=== PATIENT | female | born 1935 | race Caucasian/White ===

== ENCOUNTER 2023-01-14 14:42 | Inpatient (IN) | payer MEDICARE, BC ==
[~2023-01-14] VITALS: Ht 160 cm; Wt 54.9 kg
[2023-01-14 15:24] LABS: BASOPHILS # (AUTO) 0.1 K/UL (0.0-0.2); BASOPHILS % (AUTO) 0.8 % (0.0-2.0); EOSINOPHILS # (AUTO) 0.2 K/uL (0.0-0.7); EOSINOPHILS % (AUTO) 1.4 % (0.0-7.0); HEMATOCRIT 32.7 % (31.2-41.9); HEMOGLOBIN 10.4 g/dL (10.9-14.3); LYMPHOCYTES # (AUTO) 1.5 K/uL (0.8-4.8); LYMPHOCYTES % (AUTO) 13.9 % (20.5-51.5); MEAN CORPUSCULAR HEMOGLOBIN 28.2 uug (24.7-32.8); MEAN CORPUSCULAR HGB CONC 32 g/dL (32.3-35.6); MEAN CORPUSCULAR VOLUME 88.5 fL (75.5-95.3); MONOCYTES # (AUTO) 0.9 K/uL (0.1-1.30); MONOCYTES % (AUTO) 7.8 % (0.0-11.0); NEUTROPHILS # (AUTO) 8.5 K/uL (1.8-8.9); NEUTROPHILS % (AUTO) 76.1 % (38.5-71.5); PLATELET COUNT (AUTO) 486 K/uL (179-408); RED CELL DISTRIBUTION WIDTH 16.1 % (12.3-17.7); WHITE BLOOD COUNT (AUTO) 11.2 K/uL (3.8-11.8)
[2023-01-14 15:28] LABS: DIFFERENTIAL COMMENT 1
[2023-01-14 15:35] LABS: CARBON DIOXIDE 28 mmol/L (21-32); CHLORIDE 104 mmol/L (98-107); CREATININE 1.5 mg/dL (0.6-1.3); GLUCOSE 126 mg/dL (74-106); POTASSIUM 4.5 mmol/L (3.5-5.1); SODIUM SERUM 141 mmol/L (136-145); UREA NITROGEN, BLOOD 29 mg/dL (7-18)
[2023-01-14 15:39] LABS: ETHANOL < 3 MG/DL (0-10)
[2023-01-14 15:49] LABS: ACETAMINOPHEN < 2.0 ug/mL (10-30); ALANINE AMINOTRANSFERASE 11 U/L (14-59); ALBUMIN 2.8 g/dL (3.4-5.0); ALKALINE PHOSPHATASE 196 U/L (50-136); ASPARTATE AMINOTRANSFERASE 26 U/L (15-37); BILIRUBIN,DIRECT 0.2 mg/dL (0.0-0.2); BILIRUBIN,TOTAL 0.4 mg/dL (0.2-1.0)
[2023-01-14 15:55] LABS: *BILIRUBIN,URIN NEGATIVE (NEGATIVE); *BLOOD, URINE NEGATIVE (NEGATIVE); *COLOR,URINE YELLOW (YELLOW); *KETONES,URINE TRACE (NEGATIVE); *PROTEIN,URINE 1+ (NEGATIVE); *UROBILINOGEN,URINE 0.2 E.U./dl (NORMAL); LEUKOCYTE ESTERASE ,URINE 2+ (NEGATIVE); NITRITE, URINE POSITIVE (NEGATIVE); PH,URINE 5.5 (5.0-8.0); UGLUCOSE NEGATIVE (NEGATIVE)
[2023-01-14 15:58] LABS: *CLARITY,URINE SLIGHTLY CLOUDY (CLEAR)
[2023-01-14] MEDS ORDERED: VANCOMYCIN IV 200 ML ONE (16:00)
[2023-01-14] MEDS ORDERED: CEFTRIAXONE /D5W 50ML IVPB **ER PYXIS IV ONE (16:00)
[2023-01-14 16:09] LABS: *AMPHETAMINE, URINE NEGATIVE (NEGATIVE); *BARBITURATE, URINE NEGATIVE (NEGATIVE); *BENZODIAZEPINE, URINE NEGATIVE (NEGATIVE); *CANNABINOID, URINE NEGATIVE (NEGATIVE); *COCCAINE, URINE NEGATIVE (NEGATIVE); *OPIATE, URINE POSITIVE (NEGATIVE); *PHENCYCLIDINE SCREEN,URINE NEGATIVE (NEGATIVE); FENTANYL, URINE NEGATIVE (NEGATIVE)
[2023-01-14 16:21] LABS: BACTERIA,URINE MODERATE /HPF (NONE SEEN); SQUAMOUS EPITHELIAL CELL,UR MODERATE /HPF (NONE SEEN); WBC,URINE TNTC /HPF (0-3)
[2023-01-14] MEDS ORDERED: CEphaleXIN 500 MG CAPSULE PO ONE (16:45)
[2023-01-14] MEDS ORDERED: OLANZAPINE 10 MG VIAL IM ONE ×2 (17:00→18:27)
[2023-01-14] MEDS ORDERED: ACET-3117 PO (21:14)
[2023-01-14] MEDS ORDERED: LISI20TA30 PO (21:14)
[2023-01-14] MEDS ORDERED: ALBU2.5V13 IH (21:14)
[2023-01-14] MEDS ORDERED: DONE5TAB34 PO (21:14)
[2023-01-14] MEDS ORDERED: BLOOD SUGAR DIAGNOSTIC 1 EACH STRIP VI ONE (22:00)
[2023-01-14] MEDS ORDERED: MAG HYDROX/AL HYDROX/SIMETH 30 ML LIQUID UDC PO PRN (22:00)
[2023-01-14] MEDS ORDERED: MAGNESIUM HYDROXIDE 30 ML LIQUID UDC PO PRN (22:00)
[2023-01-14] MEDS: TEMAZEPAM 7.5 MG CAPSULE PO PRN (22:14)
[2023-01-14] MEDS ORDERED: ASPI-612 PO (23:39)
[2023-01-14] MEDS ORDERED: LOVA40TA2 PO (23:39)
[2023-01-14] MEDS ORDERED: MIRT-121 PO (23:39)
[2023-01-14] MEDS ORDERED: FAMO10TA41 PO (23:39)
[2023-01-14] MEDS ORDERED: HYDR-3974 PO (23:39)
[2023-01-14] MEDS ORDERED: OLAN2.5T3 PO ×2 (23:39)
[2023-01-14] MEDS ORDERED: DOCU-141 PO (23:39)
[2023-01-14] MEDS ORDERED: MELA5TAB20 PO (23:39)
[2023-01-14] MEDS ORDERED: MONT10TA22 PO (23:39)
[2023-01-14] MEDS: CLONAZEPAM 0.5 MG TABLET PO PRN (23:42)
[2023-01-15] MEDS ORDERED: REMEDY ESSENTIAL ZINC PASTE 113 GM TOP PRN (06:45)
[2023-01-15 08:00] VITALS: BP 149/61; TEMP 97.9; O2SAT 99
[2023-01-15] MEDS: CLONAZEPAM 0.5 MG TABLET PO PRN ×3 (08:53→18:39)
[2023-01-15] MEDS: ACETAMINOPHEN 325 MG TABLET PO PRN (08:54)
[2023-01-15] MEDS: REMEDY ESSENTIAL ZINC PASTE 113 GM TOP SCH ×2 (09:00→20:50)
[2023-01-15] MEDS: OLANZAPINE 2.5 MG TABLET PO SCH ×2 (11:51→17:04)
[2023-01-15 16:14] VITALS: BP 107/64; TEMP 97.6; O2SAT 98
[2023-01-15] MEDS ORDERED: ALBUTEROL SULFATE 2.5 MG/ 0.5 ML NEBU IH PRN (19:15)
[2023-01-15 20:12] VITALS: BP 142/69; TEMP 98.2; O2SAT 98
[2023-01-15] MEDS: ATORVASTATIN 10 MG TABLET PO SCH (20:38)
[2023-01-15] MEDS: DOCUSATE SODIUM 100 MG CAPSULE PO SCH (20:38)
[2023-01-15] MEDS: MELATONIN 3 MG TABLET PO SCH (20:39)
[2023-01-15] MEDS: TEMAZEPAM 7.5 MG CAPSULE PO PRN (23:57)
[2023-01-16] MEDS: CLONAZEPAM 0.5 MG TABLET PO PRN ×3 (02:13→19:46)
[2023-01-16 08:05] VITALS: BP 110/49; TEMP 98.3; O2SAT 93
[2023-01-16] MEDS: OLANZAPINE 2.5 MG TABLET PO SCH ×2 (08:57→16:57)
[2023-01-16] MEDS: FAMOTIDINE 20 MG TABLET PO SCH (08:58)
[2023-01-16] MEDS: REMEDY ESSENTIAL ZINC PASTE 113 GM TOP SCH ×2 (08:58→21:10)
[2023-01-16] MEDS: ASPIRIN 325 MG TABLET PO SCH (08:58)
[2023-01-16] MEDS: ACETAMINOPHEN 325 MG TABLET PO PRN (14:19)
[2023-01-16 15:35] VITALS: BP 98/48; TEMP 98; O2SAT 96
[2023-01-16] MEDS: MONTELUKAST SODIUM 10 MG TABLET PO SCH (16:57)
[2023-01-16 20:13] VITALS: BP 102/73; TEMP 98.2; O2SAT 96
[2023-01-16] MEDS: MELATONIN 3 MG TABLET PO SCH (20:14)
[2023-01-16] MEDS: DOCUSATE SODIUM 100 MG CAPSULE PO SCH (21:00)
[2023-01-16] MEDS: ATORVASTATIN 10 MG TABLET PO SCH (21:00)
[2023-01-16] MEDS: TEMAZEPAM 7.5 MG CAPSULE PO PRN (21:13)
[2023-01-17] MEDS: HYDROCODONE/APAP 5-325MG TABLET PO PRN ×2 (00:16→17:05)
[2023-01-17] MEDS: CLONAZEPAM 0.5 MG TABLET PO PRN ×4 (00:41→23:43)
[2023-01-17 08:24] VITALS: BP 130/64; TEMP 98; O2SAT 96
[2023-01-17] MEDS: OLANZAPINE 2.5 MG TABLET PO SCH ×2 (08:34→17:05)
[2023-01-17] MEDS: FAMOTIDINE 20 MG TABLET PO SCH (08:34)
[2023-01-17] MEDS: ASPIRIN 325 MG TABLET PO SCH (08:34)
[2023-01-17] MEDS: REMEDY ESSENTIAL ZINC PASTE 113 GM TOP SCH ×2 (08:35→20:05)
[2023-01-17] MEDS: CEFTRIAXONE 1 G VIAL IM SCH (08:52)
[2023-01-17 16:13] VITALS: BP 97/71; TEMP 98; O2SAT 96
[2023-01-17] MEDS: MONTELUKAST SODIUM 10 MG TABLET PO SCH (17:07)
[2023-01-17] MEDS: DOCUSATE SODIUM 100 MG CAPSULE PO SCH (19:55)
[2023-01-17] MEDS: ATORVASTATIN 10 MG TABLET PO SCH (20:03)
[2023-01-17] MEDS: ACETAMINOPHEN 325 MG TABLET PO PRN (20:03)
[2023-01-17] MEDS: MELATONIN 3 MG TABLET PO SCH (20:04)
[2023-01-17 20:48] VITALS: BP 129/90; TEMP 98.2; O2SAT 96
[2023-01-18] MEDS: CLONAZEPAM 0.5 MG TABLET PO PRN ×2 (06:36→20:03)
[2023-01-18 07:59] LABS: BASOPHILS # (AUTO) 0.1 K/UL (0.0-0.2); BASOPHILS % (AUTO) 1.1 % (0.0-2.0); EOSINOPHILS # (AUTO) 0.3 K/uL (0.0-0.7); EOSINOPHILS % (AUTO) 2.6 % (0.0-7.0); HEMATOCRIT 33.8 % (31.2-41.9); HEMOGLOBIN 10.8 g/dL (10.9-14.3); LYMPHOCYTES # (AUTO) 1.3 K/uL (0.8-4.8); LYMPHOCYTES % (AUTO) 12.7 % (20.5-51.5); MEAN CORPUSCULAR HEMOGLOBIN 28.4 uug (24.7-32.8); MEAN CORPUSCULAR HGB CONC 32 g/dL (32.3-35.6); MEAN CORPUSCULAR VOLUME 89.1 fL (75.5-95.3); MONOCYTES # (AUTO) 0.7 K/uL (0.1-1.30); MONOCYTES % (AUTO) 6.8 % (0.0-11.0); NEUTROPHILS # (AUTO) 7.6 K/uL (1.8-8.9); NEUTROPHILS % (AUTO) 76.8 % (38.5-71.5); PLATELET COUNT (AUTO) 464 K/uL (179-408); RED BLOOD CELL COUNT(AUTO) 3.79 MIL/uL (3.63-4.92); RED CELL DISTRIBUTION WIDTH 15.9 % (12.3-17.7); WHITE BLOOD COUNT (AUTO) 9.9 K/uL (3.8-11.8)
[2023-01-18 08:13] LABS: DIFFERENTIAL COMMENT 1
[2023-01-18 08:14] VITALS: BP 129/47; TEMP 98.1; O2SAT 98
[2023-01-18 08:30] LABS: ALANINE AMINOTRANSFERASE 23 U/L (14-59); ALBUMIN 2.8 g/dL (3.4-5.0); ALKALINE PHOSPHATASE 198 U/L (50-136); ASPARTATE AMINOTRANSFERASE 23 U/L (15-37); BILIRUBIN,TOTAL 0.2 mg/dL (0.2-1.0); CARBON DIOXIDE 29 mmol/L (21-32); CHLORIDE 106 mmol/L (98-107); CREATININE 1.8 mg/dL (0.6-1.3); GLUCOSE 135 mg/dL (74-106); MAGNESIUM 2.1 mg/dL (1.8-2.4); PHOSPHOROUS 4.5 mg/dL (2.5-4.9); POTASSIUM 4.6 mmol/L (3.5-5.1); SODIUM SERUM 143 mmol/L (136-145); TOTAL PROTEIN, SERUM 7.3 g/dL (6.4-8.2); UREA NITROGEN, BLOOD 40 mg/dL (7-18)
[2023-01-18] MEDS: OLANZAPINE 2.5 MG TABLET PO SCH ×2 (08:43→17:21)
[2023-01-18] MEDS: FAMOTIDINE 20 MG TABLET PO SCH (08:43)
[2023-01-18] MEDS: ASPIRIN 325 MG TABLET PO SCH (08:43)
[2023-01-18] MEDS: CEFTRIAXONE 1 G VIAL IM SCH (08:45)
[2023-01-18] MEDS: REMEDY ESSENTIAL ZINC PASTE 113 GM TOP SCH ×2 (08:46→20:21)
[2023-01-18 08:52] LABS: CREATINE KINASE, TOTAL 131 U/L (26-192)
[2023-01-18 16:18] VITALS: BP 107/64; TEMP 98; O2SAT 98
[2023-01-18] MEDS: MONTELUKAST SODIUM 10 MG TABLET PO SCH (18:00)
[2023-01-18 19:54] VITALS: BP 146/55; TEMP 98.1; O2SAT 96
[2023-01-18] MEDS: ATORVASTATIN 10 MG TABLET PO SCH (20:03)
[2023-01-18] MEDS: DOCUSATE SODIUM 100 MG CAPSULE PO SCH (20:03)
[2023-01-18] MEDS: MELATONIN 3 MG TABLET PO SCH (21:00)
[2023-01-18] MEDS: TEMAZEPAM 7.5 MG CAPSULE PO PRN (23:13)
[2023-01-19] MEDS: CLONAZEPAM 0.5 MG TABLET PO PRN ×2 (01:05→21:53)
[2023-01-19 07:42] VITALS: BP 146/63; TEMP 98; O2SAT 97
[2023-01-19 08:04] LABS: BASOPHILS % (AUTO) 0.4 % (0.0-2.0); EOSINOPHILS # (AUTO) 0.3 K/uL (0.0-0.7); EOSINOPHILS % (AUTO) 2.6 % (0.0-7.0); HEMATOCRIT 32.5 % (31.2-41.9); HEMOGLOBIN 10.5 g/dL (10.9-14.3); LYMPHOCYTES # (AUTO) 1.7 K/uL (0.8-4.8); LYMPHOCYTES % (AUTO) 17.3 % (20.5-51.5); MEAN CORPUSCULAR HEMOGLOBIN 28.5 uug (24.7-32.8); MEAN CORPUSCULAR HGB CONC 32 g/dL (32.3-35.6); MEAN CORPUSCULAR VOLUME 88.4 fL (75.5-95.3); MONOCYTES # (AUTO) 0.7 K/uL (0.1-1.30); MONOCYTES % (AUTO) 7.5 % (0.0-11.0); NEUTROPHILS % (AUTO) 72.2 % (38.5-71.5); PLATELET COUNT (AUTO) 463 K/uL (179-408); RED BLOOD CELL COUNT(AUTO) 3.68 MIL/uL (3.63-4.92); WHITE BLOOD COUNT (AUTO) 9.7 K/uL (3.8-11.8)
[2023-01-19 08:17] LABS: DIFFERENTIAL COMMENT 1
[2023-01-19 08:24] LABS: ALANINE AMINOTRANSFERASE 11 U/L (14-59); ALBUMIN 2.8 g/dL (3.4-5.0); ALKALINE PHOSPHATASE 193 U/L (50-136); ASPARTATE AMINOTRANSFERASE 22 U/L (15-37); BILIRUBIN,TOTAL 0.4 mg/dL (0.2-1.0); CALCIUM 9.2 mg/dL (8.5-10.1); CARBON DIOXIDE 27 mmol/L (21-32); CHLORIDE 106 mmol/L (98-107); CREATININE 1.5 mg/dL (0.6-1.3); GLUCOSE 104 mg/dL (74-106); MAGNESIUM 2.1 mg/dL (1.8-2.4); PHOSPHOROUS 4.2 mg/dL (2.5-4.9); POTASSIUM 4.9 mmol/L (3.5-5.1); SODIUM SERUM 143 mmol/L (136-145); TOTAL PROTEIN, SERUM 7.2 g/dL (6.4-8.2); UREA NITROGEN, BLOOD 40 mg/dL (7-18)
[2023-01-19] MEDS: ASPIRIN 325 MG TABLET PO SCH (08:33)
[2023-01-19] MEDS: FAMOTIDINE 20 MG TABLET PO SCH (08:33)
[2023-01-19] MEDS: CEFTRIAXONE 1 G VIAL IM SCH (08:34)
[2023-01-19] MEDS: OLANZAPINE 2.5 MG TABLET PO SCH ×2 (08:35→17:09)
[2023-01-19] MEDS: REMEDY ESSENTIAL ZINC PASTE 113 GM TOP SCH ×2 (08:35→20:48)
[2023-01-19] MEDS: GLUCERNA SHAKE 237 ML CAN PO SCH ×2 (12:03→17:00)
[2023-01-19 16:16] VITALS: BP 131/51; TEMP 98; O2SAT 95
[2023-01-19] MEDS: MONTELUKAST SODIUM 10 MG TABLET PO SCH (17:09)
[2023-01-19 19:52] VITALS: BP 119/68; TEMP 97.8; O2SAT 93
[2023-01-19 20:06] VITALS: O2SAT 92
[2023-01-19] MEDS: DOCUSATE SODIUM 100 MG CAPSULE PO SCH (20:47)
[2023-01-19] MEDS: ATORVASTATIN 10 MG TABLET PO SCH (20:48)
[2023-01-19] MEDS: MELATONIN 3 MG TABLET PO SCH (20:48)
[2023-01-19] MEDS: TEMAZEPAM 7.5 MG CAPSULE PO PRN (23:26)
[2023-01-20 01:06] LABS: PTH, INTACT 51 pg/mL (15-65)
[2023-01-20 06:06] LABS: A/G RATIO 0.8 (0.7-1.7); ALBUMIN 2.8 g/dL (2.9-4.4); ALPHA-1-GLOBULIN 0.4 g/dL (0.0-0.4); GAMMA GLOBULIN 1.3 g/dL (0.4-1.8); GLOBULIN, TOTAL 3.6 g/dL (2.2-3.9); M-SPIKE Not Observed g/dL (Not Observed)
[2023-01-20] MEDS: CEphaleXIN 250 MG CAPSULE PO SCH ×3 (06:38→22:39)
[2023-01-20] MEDS: ASPIRIN 325 MG TABLET PO SCH (08:55)
[2023-01-20] MEDS: FAMOTIDINE 20 MG TABLET PO SCH (08:55)
[2023-01-20] MEDS: OLANZAPINE 2.5 MG TABLET PO SCH ×2 (08:55→17:11)
[2023-01-20] MEDS: REMEDY ESSENTIAL ZINC PASTE 113 GM TOP SCH ×2 (08:56→20:44)
[2023-01-20] MEDS: GLUCERNA SHAKE 237 ML CAN PO SCH ×3 (08:56→17:11)
[2023-01-20] MEDS: CLOTRIMAZOLE/BETAMET DIPROP CREAM 15 GM TUBE TOP SCH ×2 (10:12→20:44)
[2023-01-20 15:20] VITALS: BP 112/50; TEMP 98.2; O2SAT 96
[2023-01-20] MEDS: MONTELUKAST SODIUM 10 MG TABLET PO SCH (17:12)
[2023-01-20 20:03] VITALS: BP 116/54; TEMP 98; O2SAT 96
[2023-01-20] MEDS: DOCUSATE SODIUM 100 MG CAPSULE PO SCH (20:41)
[2023-01-20] MEDS: ATORVASTATIN 10 MG TABLET PO SCH (20:42)
[2023-01-20] MEDS: MELATONIN 3 MG TABLET PO SCH (20:43)
[2023-01-21] MEDS: TEMAZEPAM 7.5 MG CAPSULE PO PRN (00:09)
[2023-01-21] MEDS: CEphaleXIN 250 MG CAPSULE PO SCH ×3 (05:09→22:08)
[2023-01-21 07:39] VITALS: BP 121/41; TEMP 98.4; O2SAT 96
[2023-01-21] MEDS: ASPIRIN 325 MG TABLET PO SCH (08:24)
[2023-01-21] MEDS: FAMOTIDINE 20 MG TABLET PO SCH (08:24)
[2023-01-21] MEDS: OLANZAPINE 2.5 MG TABLET PO SCH ×2 (08:24→16:20)
[2023-01-21] MEDS: GLUCERNA SHAKE 237 ML CAN PO SCH ×3 (08:25→17:09)
[2023-01-21] MEDS: CLOTRIMAZOLE/BETAMET DIPROP CREAM 15 GM TUBE TOP SCH ×2 (08:26→21:00)
[2023-01-21] MEDS: REMEDY ESSENTIAL ZINC PASTE 113 GM TOP SCH ×2 (08:26→21:00)
[2023-01-21 08:50] LABS: BASOPHILS # (AUTO) 0.2 K/UL (0.0-0.2); BASOPHILS % (AUTO) 1.5 % (0.0-2.0); EOSINOPHILS # (AUTO) 0.3 K/uL (0.0-0.7); EOSINOPHILS % (AUTO) 2.9 % (0.0-7.0); HEMATOCRIT 35.5 % (31.2-41.9); HEMOGLOBIN 11.3 g/dL (10.9-14.3); LYMPHOCYTES # (AUTO) 1.7 K/uL (0.8-4.8); LYMPHOCYTES % (AUTO) 16.6 % (20.5-51.5); MEAN CORPUSCULAR HEMOGLOBIN 28.3 uug (24.7-32.8); MEAN CORPUSCULAR HGB CONC 32 g/dL (32.3-35.6); MEAN CORPUSCULAR VOLUME 88.7 fL (75.5-95.3); MONOCYTES # (AUTO) 0.8 K/uL (0.1-1.30); MONOCYTES % (AUTO) 7.3 % (0.0-11.0); NEUTROPHILS # (AUTO) 7.4 K/uL (1.8-8.9); NEUTROPHILS % (AUTO) 71.7 % (38.5-71.5); PLATELET COUNT (AUTO) 455 K/uL (179-408); RED CELL DISTRIBUTION WIDTH 16.1 % (12.3-17.7); WHITE BLOOD COUNT (AUTO) 10.3 K/uL (3.8-11.8)
[2023-01-21 09:01] LABS: ALANINE AMINOTRANSFERASE 19 U/L (14-59); ALKALINE PHOSPHATASE 200 U/L (50-136); ASPARTATE AMINOTRANSFERASE 23 U/L (15-37); BILIRUBIN,TOTAL 0.4 mg/dL (0.2-1.0); CALCIUM 9.6 mg/dL (8.5-10.1); CARBON DIOXIDE 28 mmol/L (21-32); CHLORIDE 108 mmol/L (98-107); CREATININE 1.6 mg/dL (0.6-1.3); GLUCOSE 146 mg/dL (74-106); MAGNESIUM 2.2 mg/dL (1.8-2.4); PHOSPHOROUS 3.8 mg/dL (2.5-4.9); POTASSIUM 4.5 mmol/L (3.5-5.1); SODIUM SERUM 145 mmol/L (136-145); TOTAL PROTEIN, SERUM 7.7 g/dL (6.4-8.2); UREA NITROGEN, BLOOD 41 mg/dL (7-18)
[2023-01-21 09:06] LABS: DIFFERENTIAL COMMENT 1
[2023-01-21 15:05] VITALS: BP_SYST 116; BP_SYST 122; BP_DIAS 59; BP_DIAS 74; TEMP 97.5; TEMP 98.2; O2SAT 95; O2SAT 98
[2023-01-21] MEDS: MONTELUKAST SODIUM 10 MG TABLET PO SCH (17:08)
[2023-01-21 19:51] VITALS: BP 126/76; TEMP 98.1; O2SAT 96
[2023-01-21] MEDS: MELATONIN 3 MG TABLET PO SCH (21:00)
[2023-01-21] MEDS: ATORVASTATIN 10 MG TABLET PO SCH (22:08)
[2023-01-21] MEDS: DOCUSATE SODIUM 100 MG CAPSULE PO SCH (22:11)
[2023-01-21] MEDS: HYDROCODONE/APAP 5-325MG TABLET PO PRN (22:12)
[2023-01-22] MEDS: TEMAZEPAM 7.5 MG CAPSULE PO PRN (01:30)
[2023-01-22] MEDS: CLONAZEPAM 0.5 MG TABLET PO PRN ×2 (05:30→20:15)
[2023-01-22 08:01] VITALS: BP 128/83; TEMP 98; O2SAT 91
[2023-01-22] MEDS: FAMOTIDINE 20 MG TABLET PO SCH (09:07)
[2023-01-22] MEDS: OLANZAPINE 2.5 MG TABLET PO SCH ×2 (09:07→17:00)
[2023-01-22] MEDS: ASPIRIN 325 MG TABLET PO SCH (09:07)
[2023-01-22] MEDS: ACETAMINOPHEN 325 MG TABLET PO PRN (09:08)
[2023-01-22] MEDS: GLUCERNA SHAKE 237 ML CAN PO SCH ×3 (09:10→17:00)
[2023-01-22] MEDS: CLOTRIMAZOLE/BETAMET DIPROP CREAM 15 GM TUBE TOP SCH ×2 (09:11→20:57)
[2023-01-22] MEDS: REMEDY ESSENTIAL ZINC PASTE 113 GM TOP SCH ×2 (09:12→20:56)
[2023-01-22 15:10] VITALS: BP 131/78; TEMP 98; O2SAT 94
[2023-01-22] MEDS: MONTELUKAST SODIUM 10 MG TABLET PO SCH (17:30)
[2023-01-22 20:05] VITALS: BP 124/74; TEMP 98; O2SAT 95
[2023-01-22] MEDS: MELATONIN 3 MG TABLET PO SCH (20:17)
[2023-01-22] MEDS: ATORVASTATIN 10 MG TABLET PO SCH (20:28)
[2023-01-22] MEDS: DOCUSATE SODIUM 100 MG CAPSULE PO SCH (20:28)
[2023-01-22] MEDS: HYDROCODONE/APAP 5-325MG TABLET PO PRN (21:10)
[2023-01-23] MEDS: TEMAZEPAM 7.5 MG CAPSULE PO PRN (02:49)
[2023-01-23 08:02] VITALS: BP 123/78; TEMP 98; O2SAT 96
[2023-01-23] MEDS: FAMOTIDINE 20 MG TABLET PO SCH (08:54)
[2023-01-23] MEDS: OLANZAPINE 2.5 MG TABLET PO SCH ×2 (08:54→16:35)
[2023-01-23] MEDS: ASPIRIN 325 MG TABLET PO SCH (08:54)
[2023-01-23] MEDS: GLUCERNA SHAKE 237 ML CAN PO SCH ×3 (08:55→16:36)
[2023-01-23] MEDS: REMEDY ESSENTIAL ZINC PASTE 113 GM TOP SCH (08:56)
[2023-01-23] MEDS: CLOTRIMAZOLE/BETAMET DIPROP CREAM 15 GM TUBE TOP SCH (12:46)
[2023-01-23 15:23] VITALS: BP 111/48; TEMP 98; O2SAT 96
[2023-01-23] MEDS: MONTELUKAST SODIUM 10 MG TABLET PO SCH (17:19)
[2023-01-25] MEDS ORDERED: FAMOTIDINE 20 MG TABLET PO SCH (09:00)
== END 2023-01-23 17:42 | DRG 885 ==
LOC: ER 14:42 → GPS 20:56
PROVIDERS: ADMIT Psychiatry & Neurology Psychiatry; ATTEND Internal Medicine
DX: F29 Unspecified psychosis not due to a substance or known physiological condition (principal); E43 Unspecified severe protein-calorie malnutrition; J96.11 Chronic respiratory failure with hypoxia; N17.0 Acute kidney failure with tubular necrosis; N18.9 Chronic kidney disease, unspecified; F03.911 Unspecified dementia, unspecified severity, with agitation; N39.0 Urinary tract infection, site not specified; G93.40 Encephalopathy, unspecified; E88.09 Other disorders of plasma-protein metabolism, not elsewhere classified; Z20.822 Contact with and (suspected) exposure to COVID-19; E78.5 Hyperlipidemia, unspecified; Z96.643 Presence of artificial hip joint, bilateral; J44.9 Chronic obstructive pulmonary disease, unspecified; K21.9 Gastro-esophageal reflux disease without esophagitis; D64.9 Anemia, unspecified; R74.8 Abnormal levels of other serum enzymes; I12.9 Hypertensive chronic kidney disease with stage 1 through stage 4 chronic kidney disease, or unspecified chronic kidney disease; M19.90 Unspecified osteoarthritis, unspecified site; M89.8X9 Other specified disorders of bone, unspecified site; F20.9 Schizophrenia, unspecified; Z99.81 Dependence on supplemental oxygen; Z91.199 Patient's noncompliance with other medical treatment and regimen due to unspecified reason; Z91.81 History of falling
CPT/HCPCS: 36415; 71045; 76770; 83735; 83970; 84100; 84155; 84165; 85025; 93005; C1758; G0480; J0696; J2358; J3370